=== PATIENT | female | born 1960 | race Caucasian/White ===

== ENCOUNTER 2018-04-07 16:17 | Emergency (ER) | payer OTHER ==
--- NOTE | 2018-04-07 17:17 | RAD ---
LEFT HAND THREE VIEWS: 04/07/2018 HISTORY: Fall. Trauma. Pain. COMPARISON: None. FINDINGS: Three views of the left hand demonstrate multilevel degenerative change, most prominent at the level of the first carpometacarpal joint and the first interphalangeal joint. There is also prominent dege nerative change at the second distal interphalangeal joint. No displaced fracture or evidence of dis location is seen. IMPRESSION: No acute findings. POS: [facility]
--- NOTE | 2018-04-07 17:18 | RAD ---
FRONTAL RADIOGRAPH CHEST: RIGHT RIBS THREE VIEWS: 04/07/2018 HISTORY: Fall. Trauma. Pain. COMPARISON: None. FINDINGS: Frontal radiograph chest demonstrates no pneumothorax, pleural fluid, focal consolidation, or alveola r edema. Heart and mediastinal contours are grossly unremarkable. Three views of the right ribs demonstrate no displaced fracture. IMPRESSION: No acute findings. POS: [facility]
== END 2018-04-07 17:09 | disposition home or self-care (01) ==
LOC: SCSER 16:17
DX: S20.20XA Contusion of thorax, unspecified, initial encounter (principal); I10 Essential (primary) hypertension; M79.642 Pain in left hand; Z87.442 Personal history of urinary calculi; W18.30XA Fall on same level, unspecified, initial encounter